=== PATIENT | female | born 1990 | race Caucasian/White ===

== ENCOUNTER 2021-04-17 20:55 | Emergency (ER) | payer MEDICAID ==
[~2021-04-17] VITALS: Ht 154.9 cm; Wt 69.5 kg
[2021-04-17] MEDS ORDERED: LIDOCAINE 1% 10 ML VIAL ONE (23:44)
[2021-04-17] MEDS ORDERED: LIDOCAINE 1% 10 ML VIAL ID ONE (23:45)
[2021-04-18] MEDS ORDERED: IBUPROFEN 600 MG TABLET PO ONE (00:15)
[2021-04-18 00:27] VITALS: BP 105/69
== END 2021-04-18 00:20 | disposition home or self-care (01) ==
LOC: EMS 20:57
DX: L02.415 Cutaneous abscess of right lower limb (principal)
CPT/HCPCS: 10060; 99282; J3490

== ENCOUNTER 2021-04-19 12:43 | Emergency (ER) | payer MEDICAID ==
[~2021-04-19] VITALS: Ht 154.9 cm; Wt 69.5 kg
[2021-04-19 12:44] VITALS: BP 105/64
== END 2021-04-19 15:15 | disposition left against medical advice (07) ==
LOC: EMS 12:44
DX: M79.609 Pain in unspecified limb (principal); Z53.21 Procedure and treatment not carried out due to patient leaving prior to being seen by health care provider

== ENCOUNTER 2022-05-07 12:05 | Emergency (ER) | payer MEDICAID ==
[~2022-05-07] VITALS: Ht 154.9 cm; Wt 72.7 kg
[2022-05-07 12:45] LABS: BASOPHILS % (AUTO) 0.8 % (0.0-2.0); EOSINOPHILS % (AUTO) 2.4 % (1.0-6.0); HEMATOCRIT 37.1 % (36-46); HEMOGLOBIN 12.8 g/dL (12.0-16.0); LYMPHOCYTES # (AUTO) 1.2 K/uL (1.0-4.8); LYMPHOCYTES % (AUTO) 21.2 % (22.0-44.0); MEAN CORPUSCULAR HEMOGLOBIN 28.7 pg (26.0-34.0); MEAN CORPUSCULAR HGB CONC 34.4 G/dL (31.0-37.0); MEAN CORPUSCULAR VOLUME 84 fL (80-100); MONOCYTES # (AUTO) 0.4 K/uL (0.1-1.0); MONOCYTES % (AUTO) 7.1 % (2.0-9.0); NEUTROPHILS # (AUTO) 3.9 K/uL (1.8-7.7); NEUTROPHILS % (AUTO) 68.5 % (40.0-70.0); PLATELET COUNT (AUTO) 282 K/uL (150-450); RED BLOOD CELL COUNT(AUTO) 4.44 MIL/uL (4.00-5.20); RED CELL DISTRIBUTION WIDTH 14.1 % (11.5-14.5)
[2022-05-07 12:52] LABS: ANION GAP 5 mmol/L (8-16); CALCIUM, TOTAL 9.4 mg/dL (8.8-10.5); CARBON DIOXIDE 25 mmol/L (22-29); CHLORIDE 103 mmol/L (98-107); CREATININE 0.67 mg/dL (0.60-1.30); GLOMERULAR FILTR. RATE CALC > 60 mL/min (>60); GLUCOSE,RANDOM 91 mg/dL (70-110); POTASSIUM 3.8 mmol/L (3.5-5.1); SODIUM SERUM 133 mmol/L (136-145); UREA NITROGEN, BLOOD 12 mg/dL (7-18)
[2022-05-07 12:57] LABS: PROTHROMBIN TIME 10.9 SEC (9.4-11.6)
[2022-05-07 12:58] LABS: ALANINE AMINOTRANSFERASE 20 U/L (12-78); ALBUMIN 3.9 g/dL (3.4-5.0); ALKALINE PHOSPHATASE 60 U/L (46-116); ASPARTATE AMINOTRANSFERASE 14 U/L (15-37); BILIRUBIN,TOTAL 0.4 mg/dL (0.1-1.0); LIPASE 147 U/L (73-393); TOTAL PROTEIN, SERUM 7.5 g/dL (6.4-8.2)
[2022-05-07] MEDS ORDERED: MORPHINE SULFATE 4 MG/ML SYRINGE IVP ONE (13:45)
[2022-05-07] MEDS ORDERED: SODIUM CHLORIDE 0.9% 100 ML ONE (13:51)
[2022-05-07] MEDS ORDERED: IOHEXOL 350 MG/ML 100 ML VIAL ONE (13:51)
[2022-05-07] MEDS ORDERED: SODIUM CHLORIDE 0.9% 1,000 ML IV ONE ×2 (14:15→18:45)
[2022-05-07 19:21] LABS: APPEARANCE,URINE CLEAR (CLEAR); BILIRUBIN,URINE NEGATIVE (NEGATIVE); GLUCOSE, URINE (UA) NEGATIVE (NEGATIVE); KETONES,URINE NEGATIVE (NEGATIVE); LEUKOCYTE ESTERASE ,URINE MODERATE (NEGATIVE); NITRATE,URINE NEGATIVE (NEGATIVE); OCCULT BLOOD,URINE LARGE (NEGATIVE); PH,URINE 6.5 (5.0-8.0); PROTEIN,URINE NEGATIVE (NEGATIVE); SPECIFIC GRAVITIY, URINE 1.039 (1.003-1.030); UROBILINOGEN,URINE <=1.0 mg/dL (<=1.0)
[2022-05-07 19:38] LABS: BACTERIA,URINE None Seen /HPF (None Seen); RBC,URINE 0-2 /HPF (0-2)
[2022-05-07] MEDS ORDERED: CEPH-558 PO (19:44)
[2022-05-07 20:03] VITALS: BP 116/69
== END 2022-05-07 20:21 | disposition home or self-care (01) ==
LOC: EMS 12:09
DX: N39.0 Urinary tract infection, site not specified (principal)
CPT/HCPCS: 99285; 74177; 96374; 96361; 80053; 81001; 83690; 84703; 85025; 85610; 85730; 36415; 87086; 87077; J2270; Q9967; J7050

== ENCOUNTER 2023-11-28 01:49 | Emergency (ER) | payer MEDICAID, OTHER ==
[~2023-11-28] VITALS: Ht 160 cm; Wt 69.5 kg
[~2023-11-28 01:49] MED LIST: CEPH-558 PO
[2023-11-28 01:51] VITALS: BP 112/79; PULSE 83; RESP 18; TEMP 98.4
[2023-11-28] MEDS ORDERED: NAPR-1025 PO (03:38)
[2023-11-28] MEDS ORDERED: VALA500T42 PO (03:38)
[2023-12-01] MEDS ORDERED: VALA500T42 PO (16:00)
[2023-12-01] MEDS ORDERED: NAPR-1025 PO (16:00)
== END 2023-11-28 03:56 | disposition home or self-care (01) ==
LOC: EMS 01:49
DX: B02.9 Zoster without complications (principal)
CPT/HCPCS: 99283; Z7502

== ENCOUNTER 2024-05-10 20:08 | Emergency (ER) | payer OTHER ==
[~2024-05-10] VITALS: Ht 157.5 cm; Wt 67.3 kg
[~2024-05-10 20:08] MED LIST changes: +NAPR-1025 PO; +VALA500T42 PO
[2024-05-10 20:13] VITALS: TEMP 98.3
[2024-05-10 20:41] LABS: BASOPHILS % (AUTO) 0.3 % (0.0-2.0); EOSINOPHILS % (AUTO) 2.8 % (1.0-6.0); HEMOGLOBIN 12.4 g/dL (12.0-16.0); LYMPHOCYTES # (AUTO) 1.6 K/uL (1.0-4.8); LYMPHOCYTES % (AUTO) 22.2 % (22.0-44.0); MEAN CORPUSCULAR HGB CONC 33.6 G/dL (31.0-37.0); MEAN CORPUSCULAR VOLUME 86 fL (80-100); MONOCYTES # (AUTO) 0.4 K/uL (0.1-1.0); MONOCYTES % (AUTO) 6.2 % (2.0-9.0); NEUTROPHILS # (AUTO) 4.8 K/uL (1.8-7.7); NEUTROPHILS % (AUTO) 68.5 % (40.0-70.0); PLATELET COUNT (AUTO) 239 K/uL (150-450); RED BLOOD CELL COUNT(AUTO) 4.28 MIL/uL (4.00-5.20); RED CELL DISTRIBUTION WIDTH 14.5 % (11.5-14.5)
[2024-05-10 20:50] LABS: ANION GAP 9 mmol/L (8-16); CALCIUM, TOTAL 8.8 mg/dL (8.8-10.5); CARBON DIOXIDE 26 mmol/L (22-29); CHLORIDE 104 mmol/L (98-107); GLOMERULAR FILTR. RATE CALC > 60 mL/min (>60); GLUCOSE,RANDOM 97 mg/dL (70-110); POTASSIUM 3.9 mmol/L (3.5-5.1); SODIUM SERUM 139 mmol/L (136-145); UREA NITROGEN, BLOOD 18 mg/dL (7-18)
[2024-05-10 21:21] LABS: HCG,QUANTITATIVE < 1 mIU/mL (0-6)
[2024-05-10 21:28] LABS: LIPASE 74 U/L (16-77)
[2024-05-10 21:42] VITALS: BP 114/74; PULSE 68; RESP 16; O2SAT 99
[2024-05-10 22:13] LABS: COVID AG,FIA SOURCE NASAL SWAB
[2024-05-10 22:17] LABS: APPEARANCE,URINE CLEAR (CLEAR); BILIRUBIN,URINE NEGATIVE (NEGATIVE); COLOR,URINE LIGHT YELLOW (YELLOW); GLUCOSE, URINE (UA) NEGATIVE (NEGATIVE); KETONES,URINE NEGATIVE (NEGATIVE); LEUKOCYTE ESTERASE ,URINE SMALL (NEGATIVE); NITRATE,URINE NEGATIVE (NEGATIVE); OCCULT BLOOD,URINE NEGATIVE (NEGATIVE); PH,URINE 7.5 (5.0-8.0); PROTEIN,URINE NEGATIVE (NEGATIVE); SPECIFIC GRAVITIY, URINE 1.013 (1.003-1.030); UROBILINOGEN,URINE <=1.0 mg/dL (<=1.0)
[2024-05-10 22:22] LABS: ALANINE AMINOTRANSFERASE 20 U/L (12-78); ALBUMIN 3.5 g/dL (3.4-5.0); ALKALINE PHOSPHATASE 76 U/L (46-116); ASPARTATE AMINOTRANSFERASE 17 U/L (15-37); BILIRUBIN,TOTAL 0.2 mg/dL (0.1-1.0); TOTAL PROTEIN, SERUM 7.1 g/dL (6.4-8.2)
[2024-05-10 22:25] LABS: BACTERIA,URINE Few /HPF (None Seen); RBC,URINE 0-2 /HPF (0-2); SQUAMOUS EPITHELIAL CELL,UR Few /LPF (None Seen)
[2024-05-10 22:31] LABS: SARS-COV2 (COVID) ANTIGEN,FIA Negative (Negative)
[2024-05-10] MEDS: SODIUM CHLORIDE 0.9% 1,000 ML IV ONE (22:45)
[2024-05-10] MEDS: METOCLOPRAMIDE HCL 5 MG/ML 2 ML VIAL IVP ONE (22:46)
[2024-05-11] MEDS: FAMOTIDINE 20 MG/2 ML VIAL IVP ONE (01:26)
[2024-05-11] MEDS ORDERED: FAMO20 PO (02:20)
== END 2024-05-11 02:27 | disposition home or self-care (01) ==
LOC: EMS 20:08
DX: K29.70 Gastritis, unspecified, without bleeding (principal); Z98.890 Other specified postprocedural states; Z20.822 Contact with and (suspected) exposure to COVID-19
CPT/HCPCS: 99285; 96374; 76705; 96361; 87426; 80048; 80076; 81001; 83690; 84702; 85025; 36415; 87086; 87186; 74176; J2765; J7030; J3490

== ENCOUNTER 2025-03-21 18:50 | Emergency (ER) | payer OTHER ==
[~2025-03-21] VITALS: Ht 162.6 cm; Wt 70.5 kg
[~2025-03-21 18:50] MED LIST changes: +FAMO20 PO; -NAPR-1025 PO; +NAPR-1196 PO
[2025-03-21 23:49] VITALS: BP 119/71; PULSE 68; RESP 16; TEMP 97.3; O2SAT 99
== END 2025-03-21 23:55 | disposition home or self-care (01) ==
LOC: EMS 18:50
DX: S61.216A Laceration without foreign body of right little finger without damage to nail, initial encounter (principal); X58.XXXA Exposure to other specified factors, initial encounter; Y93.89 Activity, other specified; Y92.89 Other specified places as the place of occurrence of the external cause; Y99.0 Civilian activity done for income or pay
CPT/HCPCS: 99282; Z7502